=== PATIENT | female | born 1975 | race African-American/Black ===

== ENCOUNTER → 2020-05-10 | Outpatient (CLI) | payer OTHER, BC ==
--- NOTE | 2020-05-10 14:06 | KCIC ---
Examination: MRI of the left shoulder without contrast HISTORY: History of left shoulder pain COMPARISON: None available TECHNIQUE: Multiplanar, multisequence MR imaging of the left shoulder performed without contrast. FINDINGS: The long head of the biceps tendon within the bicipital groove. The attachment of the long head the biceps tendon to the superior labral anchor grossly appears intact. The attachment of the subscapularis tendon grossly appears intact. There is moderate increased signal identified in the supraspinatus, infraspinatus tendon at its attachment to greater tuberosity likely tendinosis. Small amount of fluid identified in subacromial subdeltoid bursa. The visualized labrum grossly appears unremarkable. The muscle bulk grossly appears unremarkable. There is obscuration of fat in the rotator interval. Moderate degenerative changes identified in the acromioclavicular joint. Acromion is type II Mild degenerative changes glenohumeral joint. IMPRESSION: 1. Moderate tendinosis of the supraspinatus and intraspinous tendons. There is small amount of fluid identified in subacromial subdeltoid bursa could be bursitis. Tiny focus of full-thickness tear is not excluded. Recommend MR arthrogram for further evaluation. 2. Obscuration of fat in the rotator interval could be adhesive capsulitis. Electronically signed by: Jasper Galdamez MD (05/10/2020 2:03 PM) [id number]
== END ==
LOC: KCIC MRI 09:47
PROVIDERS: ATTEND Family Medicine
DX: S49.92XA Unspecified injury of left shoulder and upper arm, initial encounter (principal); M75.82 Other shoulder lesions, left shoulder; X58.XXXA Exposure to other specified factors, initial encounter; Y93.89 Activity, other specified; Y92.89 Other specified places as the place of occurrence of the external cause; Y99.8 Other external cause status
CPT/HCPCS: 73221

== ENCOUNTER → 2020-07-24 | Outpatient (CLI) | payer OTHER, BC ==
--- NOTE | 2020-07-24 09:14 | KCIC ---
MRI of the cervical spine without contrast 07/24/2020 CLINICAL HISTORY: Neck pain with bilateral shoulder pain. TECHNIQUE: Unenhanced T1-weighted, T2-weighted and inversion recovery sagittal and gradient echo and T2-weighted axial images of the cervical spine were obtained. FINDINGS: Minimal lateral curvature of the cervical spine is seen convex to the left. There is slight reversal the normal cervical lordosis. Degenerative signal changes are seen involving all of the dis ks of the cervical spine. The marrow signal of the visualized bony structures is within normal limits . The cervical spinal cord is normal in morphology, position, and signal characteristics. On the axial images throughout the cervical disc spaces, degenerative changes are seen consisting of minimal to mild generalized disc bulges and mild degenerative changes involving the uncovertebral and facet joints. These findings do not result in significant central spinal canal or neural foraminal s tenosis. No focal disc herniation is seen. IMPRESSION: Relatively mild degenerative changes are seen involving the cervical spine as outlined ab ove. These findings do not result in significant central spinal canal or neural foraminal stenosis at any level. Electronically signed by: Yan Sharma MD (07/24/2020 9:12 AM) [place] [id number]
== END ==
LOC: KCIC MRI 07:52
PROVIDERS: ATTEND Physician Assistant
DX: M47.812 Spondylosis without myelopathy or radiculopathy, cervical region (principal)
CPT/HCPCS: 72141

== ENCOUNTER → 2020-08-19 | Outpatient (CLI) | payer OTHER, BC ==
[~2020-08-19] MED LIST: BCP; HYDR-2761 PO
--- NOTE | 2020-08-19 10:14 | KCIC ---
MR LUMBAR SPINE WO [id number] Date: 08/19/2020 8:00 AM Indication: Reason: LUMBAGO / Spl. Instructions: / History: Back pain with RLE pain and numbness. M VC Apr 2020. Comparison: Radiograph 05/11/2020. Technique: Multi-planar multi-weighted magnetic resonance imaging of the lumbar spine was performed w ithout intravenous contrast using the standard lumbar spine protocol. FINDINGS: The lumbar spine is normally aligned. No acute fracture. The intervertebral discs are normal. No ray ow replacing process to suggest malignancy. The conus terminates at a normal level. No abnormal signal is seen within the visualized distal spina l cord. No clumping of intrathecal nerve roots. No soft tissue abnormality in the visualized abdomen or pelvis. T12-L1: No disc bulge. No facet arthropathy. No significant spinal stenosis or neural foraminal narro wing. L1-L2: No disc bulge. No facet arthropathy. No significant spinal stenosis or neural foraminal narrow ing. L2-L3: No disc bulge. No facet arthropathy. No significant spinal stenosis or neural foraminal narrow ing. L3-L4: Disc bulge. Mild facet arthropathy. No significant spinal stenosis or neural foraminal narrowi ng. L4-L5: Disc bulge. Moderate to severe facet arthropathy. No significant spinal stenosis or neural for aminal narrowing. L5-S1: No disc bulge. Mild facet arthropathy. No significant spinal stenosis or neural foraminal narr owing. IMPRESSION: No significant spinal canal stenosis or neural foraminal narrowing. Electronically signed by: Erasto Younger MD (08/19/2020 10:01 AM) [id number]
== END ==
LOC: KCIC MRI 07:54
PROVIDERS: ATTEND Physician Assistant
DX: M47.817 Spondylosis without myelopathy or radiculopathy, lumbosacral region (principal)
CPT/HCPCS: 72148

== ENCOUNTER → 2020-10-31 | Outpatient (CLI) | payer OTHER ==
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
== END | disposition home or self-care (01) ==
LOC: PNCL 10:41
PROVIDERS: ATTEND Anesthesiology
DX: M54.2 Cervicalgia (principal); M79.601 Pain in right arm; M79.605 Pain in left leg; M79.604 Pain in right leg; M19.90 Unspecified osteoarthritis, unspecified site; E03.9 Hypothyroidism, unspecified; Z90.49 Acquired absence of other specified parts of digestive tract; Z98.890 Other specified postprocedural states; Z79.899 Other long term (current) drug therapy
CPT/HCPCS: 99214; G0463

== ENCOUNTER → 2021-01-21 | Outpatient (CLI) | payer OTHER ==
--- NOTE | 2021-01-21 10:13 | PDOC ---
Progress Note - Pain Clinic Date of Service: DOS: DATE: 01/21/21 TIME: 10:10 Diagnosis: Dx: Lumbar radiculopathy with low back pain Cervical radiculopathy with cervicalgia Myofascial pain History or Present Illness: HPI: 45-year-old female returns for follow-up status post initial evaluation October 26, and physical therapy which has been performed mainly for the low back and legs which is improving by about 20 to 25% but still significant pain in the low back right lower extremity posterior gluteus posterior lateral thigh lateral anterior thigh posterior calf radiating also pain in the neck and shoulders patient had some work on her shoulder and is now recovering and would like to revisit physical therapy for the neck and shoulder as well. Patient reports her pain is a 7 on scale 10 is worst over the past week 6-1/2 at its average in 6 at its least is a 7 today patient reports aching sharp dull tight shooting in the neck and shoulders upper extremities over the mid back and low back with some tingling pain in the upper extremities and lower extremity on the right patient reports it can be radiating constant with activity standing walking changing positions better with sitting or laying down is awakening from sleep 3 hours or so patient reports no new motor or sensory deficits no new bowel or bladder incontinence or other complaints. Physical Exam: VS: Blood pressure is 152/84 pulse 74 respirations 18 temperature 98.7 F height is 5 feet 6 inches weight is 208 pounds PE: PHYSICAL EXAMINATION: GENERAL: The patient is awake, alert, oriented, appropriate, very pleasant demeanor HEENT: Shows normocephalic, atraumatic. Extraocular movements are intact and symmetrical. Oral cavity: Mucous membranes moist and pink. NECK: Shows anterior throat supple without palpable lymphadenopathy noted. Swallow reflex symmetrical. CHEST: Shows normal on inspection. Breath sounds are clear bilaterally, no rales or rhonchi. HEART: Shows S1, S2 clear. No murmurs auscultated. ABDOMEN: Soft, nontender, nondistended, obese. BACK: Shows spine grossly in the midline. Normal-appearing cervical lordotic curvature. Cervical paraspinous muscles show symmetrical inspection on palpation some moderate tenderness diffusely throughout the middle and lower distribution the paraspinous muscles but without specific radiation atrophy or hypertrophy. Patient shows good rotational motion of the cervical spine both laterally as well as extension flexion without significant increase in pain. There is increased thoracic kyphosis, some flattening of the lumbar lordotic curvature. Lumbar paraspinous muscles show symmetrical on inspection, on palpation shows some moderate tenderness diffusely throughout the upper, middle and lower distribution of the paraspinous muscles without specific trigger points, without radiation of pain. The patient has good rotational motion of the lumbar spine, both laterally as well as extension and flexion without significant difficulty. No tenderness over the spinous processes, sacrum or sacroiliac regions. EXTREMITIES: Lower extremities show deep tendon reflexes 2+ in the patellar and tendo calcaneus tendons. Motor exam is 5 on a scale of 5 with right dorsiflexion, extension, quadriceps and hamstring flexion and 5/5 on the left. Peripheral pulses are 1+ posterior tibial. No peripheral edema is noted bilaterally. Lower extremities are warm and dry to touch, equal in color and appearance. Upper extremity show deep tendon reflexes at 2+ in the bicep tricep tendons, motor exam is strong with rig builder strength rated 5 out of 5 as is bicep and tricep flexion. Shoulder shrug is strong and intact with some moderate pain with shoulder shrug on the left but without significant loss of strength on resistance. SKIN: Shows warm and dry, good turgor. No edema. No sores, rashes or bruising throughout. Procedure: Procedure: Options were discussed with the patient. Patient chart reviews her current medication regimen updated current review of systems updated today as well. We will renew patient's physical therapy to focus on the back and neck as well. Patient did very well with her first bout of therapy it was only focused on the back and would like to do this with the upper back and neck as well. Patient will follow up after physical therapy we did discuss potential interventional techniques at that time if necessary and if radicular pain is still present. Patient understands and agrees. Medication Injected: Med Injected: None Condition at Discharge: Condition at Discharge: Condition at discharge is stable. JAMES FITZGERALD MD Jan 21, 2021 10:13
== END | disposition home or self-care (01) ==
LOC: PNCL 09:39
PROVIDERS: ATTEND Anesthesiology
DX: M54.16 Radiculopathy, lumbar region (principal); M54.12 Radiculopathy, cervical region; M54.5 Low back pain; M54.2 Cervicalgia; M79.18 Myalgia, other site; Z79.899 Other long term (current) drug therapy; Z88.8 Allergy status to other drugs, medicaments and biological substances
CPT/HCPCS: 99212; G0463

== ENCOUNTER → 2021-05-28 | Outpatient (CLI) | payer OTHER ==
--- NOTE | 2021-05-28 10:16 | PDOC ---
Progress Note - Pain Clinic Date of Service: DOS: DATE: 05/28/21 TIME: 10:12 Diagnosis: Dx: Lumbar radiculopathy with lumbar degenerative disc disease History or Present Illness: HPI: 45-year-old female returns for follow-up status post physical therapy x2 bouts now since October and again in January of this year with some good results but only temporary with only about 50% improvement overall and limited for about 1 to 2 weeks following the therapy. Patient reports been using a TENS unit as well on the mid and low back which has been helpful but only while she has it on when she takes it off the pain returns almost immediately. Patient reports pain in the right lower extremity, low back rating the posterior gluteus posterior lateral thigh lateral anterior thigh anteromedial thigh on the right and radiating into the right lower leg medially into the calf patient report is aching sharp dull tight shooting can be tingling and stabbing radiating severe at its worst pain with walking standing changing positions. Patient reports no bowel or bladder incontinence. Patient continues to do stretching and strengthening exercises from physical therapy and taking [id number] Tylenol and ibuprofen which is not helping significantly. Patient rates pain as a 7 on scale 10 is worse over the past week 5 on average and a 40s least and is a 4 today. Physical Exam: VS: Blood pressure is 127/77 pulse 75 respirations 18 temperature is 98.7 F height 5 feet 6 inches weight is 204 pounds. PE: PHYSICAL EXAMINATION: GENERAL: The patient is awake, alert, oriented, appropriate, very pleasant in demeanor HEENT: Shows normocephalic, atraumatic. Extraocular movements are intact and symmetrical. Oral cavity: Mucous membranes moist and pink. Dentition is intact. NECK: Shows anterior throat supple without palpable lymphadenopathy noted. Swallow reflex symmetrical. CHEST: Shows normal on inspection. Breath sounds are clear bilaterally, distant no rales rhonchi wheezes auscultated. HEART: Shows S1, S2 clear. No murmurs auscultated. ABDOMEN: Soft, nontender, nondistended. No palpable organomegaly is noted. BACK: Shows spine grossly in the midline. Normal-appearing cervical lordotic curvature. There is slightly increased thoracic kyphosis, some minor flattening of the lumbar lordotic curvature. Lumbar paraspinous muscles show symmetrical on inspection, on palpation shows some moderate tenderness diffusely throughout the upper, middle and lower distribution of the paraspinous muscles without spe cific trigger points, without radiation of pain. The patient has good rotational motion of the lumbar spine, both laterally as well as extension and flexion without significant difficulty. EXTREMITIES: Lower extremities show deep tendon reflexes 2 in the patellar and tendo calcaneus tendons. Motor exam is 4 on a scale of 5 with right dorsiflexion, extension, quadriceps and hamstring flexion and 5/5 on the left. Peripheral pulses are 1+ posterior tibial. No peripheral edema is noted bilaterally. Lower extremities are warm and dry to touch, equal in color and appearance. Straight leg raise noted to be positive on the right about 45 degrees, left side is negative. SKIN: Shows warm and dry, good turgor. No edema. No sores, rashes or bruising throughout. Procedure: Procedure: Options were discussed with the patient. Patient chart reviews her current medication regimen updated current review of systems updated today as well. We will preauthorize patient for lumbar epidural steroid injection as she has a clinical radiculopathy in the L4-5 dermatomal distribution on the right., Patient will wait for preauthorization with insurance provider, once preauthorized we will plan on translaminar approach L4-5 level lumbar epidural s teroid injection with fluoroscopic guidance at that time. Medication Injected: Med Injected: None Condition at Discharge: Condition at Discharge: Condition at discharge is stable. JAMES FITZGERALD MD May 28, 2021 10:16
== END | disposition home or self-care (01) ==
LOC: PNCL 09:43
PROVIDERS: ATTEND Anesthesiology
DX: M51.16 Intervertebral disc disorders with radiculopathy, lumbar region (principal); Z79.899 Other long term (current) drug therapy; Z88.8 Allergy status to other drugs, medicaments and biological substances
CPT/HCPCS: 99212; G0463